=== PATIENT | female | born 1950 | race Caucasian/White ===

== ENCOUNTER 2017-12-16 10:17 | Inpatient (IN) | payer MEDICARE, BC ==
[2017-12-16 10:43] LABS: #Basophils 0.1 thou/uL (0.0-0.2); #Eosinphils 0.1 thou/uL (0.0-0.7); #Lymphocytes 1.4 thou/uL (1.20-3.40); #Monocytes 0.6 thou/uL (0.11-0.59); #Neutrophils 9.3 thou/uL (1.40-6.50); %Basophils 0.5 % (0.0-1.0); %Eosinophils 0.7 % (0.0-10.0); %Lymphocytes 12.4 % (21.0-51.0); %Monocytes 5.2 % (0.0-10.0); %Neutrophils 81.2 % (42.0-75.0); Hemoglobin 14.3 g/dL (12.0-16.0); Mean Corpuscular Hemoglobin 31.8 pg (27.0-31.0); Mean Corpuscular Volume 99.2 fL (78.0-98.0); Mean Platelet Volume 8.1 fL (7.4-10.4); Platelet Count 286 thou/uL (130-400); RBC Distribution Width 11.2 % (11.5-14.5); White Blood Cell (WBC) Count 11.5 thou/uL (4.8-10.8)
[2017-12-16] MEDS ORDERED: ISOVUE-370 76%-LOCM 1 ML ONE (10:48)
[2017-12-16 11:10] LABS: Troponin I Less than 0.010 ng/mL (< 0.028)
[2017-12-16] MEDS ORDERED: Lidocaine 1% w/Epinephrine 1:100K 20 ML VIAL ONE (11:11)
[2017-12-16] MEDS ORDERED: Lorazepam 2 MG/ML VIAL ONE (11:11)
[2017-12-16] MEDS ORDERED: Ondansetron PF 4 MG/2 ML Vial ONE (11:11)
[2017-12-16] MEDS ORDERED: Morphine 4 MG/ML VIAL ONE (11:15)
--- NOTE | 2017-12-16 11:35 | CT ---
CT CHEST AND ABDOMEN AND PELVIS WITH CONTRAST: Date: 12/16/17 Multiple axial tomograms obtained through the chest, abdomen, and pelvis following a trauma protocol. INDICATION: Fall from horse with injury to chest and abdomen. FINDINGS: CT CHEST: Moderate size right pneumothorax. There are acute fractures involving the anterolateral right fourth, fifth, sixth, and seventh ribs. There are numerous old fractures involving the right ribs posteriorly and laterally that appear heale d. Mediastinum unremarkable. Bilateral breast implants. IMPRESSION: 1. Moderate size right pneumothorax. 2. Acute fracture involving the anterolateral right fourth, fifth, sixth, and seventh ribs. 3. Numerous old right-sided rib fractures. CT ABDOMEN AND PELVIS: Liver, spleen, and pancreas unremarkable. Kidneys unremarkable. No evidence of solid organ injury. No free blood or fluid in the abdomen or pelvis. Bowel loops unremarkable. Aorta appears normal. The bony pelvis appears intact. There are degenerative changes at both hips without evidence of acute fracture. IMPRESSION: No acute intra-abdominal injury or pelvic fracture. CT THORACIC AND LUMBAR SPINE: Sagittal and coronal images of the thoracic and lumbar spine obtained. There are degenerative changes involving the thoracic and lumbar spine. Anterior osteophytes. Mild an terior wedging at several mid thoracic vertebra which appear chronic. There is mild buckling of the anterior cortex of L1 vertebra with mild anterior wedging at this site. This is suspicious for an acute compression with mild loss of anterior height. There is no retropuls ion. Posterior height is maintained. The other lumbar vertebra maintain height. Degenerative disc changes and facet hypertrophy seen throu ghout the lumbar spine. Review of the lumbar vertebra shows evidence of a probable acute fracture involving the transverse pr ocess on the right at L2. No other transverse process fracture confirmed. IMPRESSION: 1. Suspect acute mild anterior compression of the L1 vertebra. 2. Evidence of fracture of the right transverse process at L2. Findings relayed to Dr. Hardwick at the time of dictation. CODE CR. POS: [facility]
--- NOTE | 2017-12-16 12:17 | CT ---
CT BRAIN: Date: 12/06/17 PROVIDED CLINICAL HISTORY: Level II trauma, ejection from horse, head injury. FINDINGS: The ventricular system appears normal in size and morphology. There is no evidence for intracranial h emorrhage or mass effect. The extracranial soft tissues and osseous structures demonstrate no acute a bnormality. IMPRESSION: No evidence for intracranial hemorrhage or mass effect. POS: [facility]
--- NOTE | 2017-12-16 12:19 | CT ---
CT CERVICAL SPINE: Date: 12/16/17 Multiple axial tomograms obtained through the cervical spine with multiplanar reconstruction. INDICATION: Trauma. Injury to neck. FINDINGS: Cervical vertebra maintain normal height. There are moderate degenerative changes present in the mid cervical spine with loss of disc space at C4-5, C5-6, C6-7, and C7-T1. Slight anterolisthesis at C4-5 and C5-6. Posterior spondylosis encroaches into the spinal canal at several levels. No evidence of acute fracture. IMPRESSION: Degenerative changes of cervical spine. No acute fracture identified. POS: [facility]
--- NOTE | 2017-12-16 12:34 | RAD ---
PORTABLE CHEST: Date: 12/16/17 PROVIDED CLINICAL HISTORY: Chest pain. FINDINGS: Comparison is made with the study performed earlier same date. Interval placement of right-sided chest tube. Residual pneumothorax is not definitely identified. Add itional significant interval change with respect to the prior examination is not apparent. The supine nature of the examination limits sensitivity for detection of residual pneumothorax. IMPRESSION: As above. POS: [facility]
--- NOTE | 2017-12-16 12:35 | RAD ---
PORTABLE CHEST: Date: 12/16/17 INDICATION: Trauma with chest injury. FINDINGS: There is a moderate size right pneumothorax, which is better seen on chest CT. Multiple old right rib fractures which show healing on CT; however, CT does confirm acute fractures o f the anterolateral right fifth, sixth, and seventh ribs which are not apparent on this portable proj ection. See chest CT for further characterization. IMPRESSION: Right pneumothorax and right rib fractures. POS: [facility]
[2017-12-16 12:58] LABS: Albumin 4.1 g/dL (3.4-4.8)
[2017-12-16 13:00] LABS: Calcium 10.2 mg/dL (7.8-10.44); Chloride 100 mmol/L (98-107); Potassium 3.8 mmol/L (3.5-5.1); Sodium 136 mmol/L (136-145)
[2017-12-16 13:01] LABS: Globulin 3.1 g/dL (2.4-3.5); Glucose 115 mg/dL (80-115); Protein, Total 7.2 g/dL (6.0-8.3)
[2017-12-16 13:02] LABS: Carbon Dioxide 25 mmol/L (23-31)
[2017-12-16 13:03] LABS: Anion Gap 15 mmol/L (10-20); Bilirubin, Total 0.3 mg/dL (0.2-1.2)
[2017-12-16 13:04] LABS: Alkaline Phosphatase 66 U/L (40-150); Calc. Creatinine Clearance 0 mL/min (70-130); Estimated GFR-MDRD 53
[2017-12-16 13:05] LABS: BUN (Urea Nitrogen) 21 mg/dL (9.8-20.1)
[2017-12-16 13:06] LABS: AST (SGOT) 23 U/L (5-34)
[2017-12-16 13:07] LABS: ALT (SGPT) 18 U/L (8-55); Lipase 30 U/L (8-78)
[2017-12-16] MEDS ORDERED: Ondansetron PF 4 MG/2 ML Vial IVP PRN (13:07)
[2017-12-16] MEDS ORDERED: Dextrose 50% Abboject 50 ML SYRINGE SLOW IVP PRN (13:07)
[2017-12-16] MEDS ORDERED: hydrALAZINE 20 MG/ML VIAL SLOW IVP PRN (13:07)
[2017-12-16] MEDS ORDERED: Ondansetron ODT 4 MG TAB PO PRN (13:07)
[2017-12-16] MEDS ORDERED: Dextrose 5% in Water 1,000 ML IV PRN (13:07)
[2017-12-16] MEDS ORDERED: Rib Fracture Protocol PO SCH (13:15)
[2017-12-16] MEDS ORDERED: Cyclobenzaprine 10 MG TAB PO PRN (16:00)
[2017-12-16 16:01] VITALS: BMI 28.0
[2017-12-16] MEDS: Acetaminophen 500 MG TAB PO SCH ×2 (16:51→23:13)
[2017-12-16] MEDS: traMADol HCl 50 MG TAB PO SCH ×2 (16:52→23:13)
--- NOTE | 2017-12-16 16:59 | PRG ---
HISTORY: Leslie Vo is a 67-year-old female from [place], [place], was riding her horse, fell o ff of it, was evaluated elsewhere, transferred here. Patient had a chest x-ray, brain CAT scan, cerv ical spine CAT scan, chest, abdomen, and pelvis CAT scan. She was found to have a right pneumothorax . She had old right rib fractures as well as four new right rib fractures. Tube thoracostomy was pl aced in the ER. Ashlee HICKS evaluated her initially. I have discussed the case with Ashlee HICKS. I agree with her assessment and plan. The patient currently is comfortable. They are waiting to h ook her chest tube to suction. Followup chest x-ray after tube thoracostomy reveals full lung expans ion. Continue tube to suction today and check x-ray tomorrow. Possibly, we will place the Pleur-barak c to waterseal pending appearance.
--- NOTE | 2017-12-16 17:14 | HP ---
DATE OF ADMISSION: 12/16/2017 ATTENDING PHYSICIAN: Dr. Garcia. TRAUMA ACTIVATION: Level 2. HISTORY OF PRESENT ILLNESS: Leslie Vo is a 67-year-old female who presented to [facility] Room after being bucked off a horse. Per patient, she was riding a horse, it became spooked and b ucked her off. She fell landing on her right side and striking her head. She was seen and evaluated in the emergency room and found to have multiple right rib fractures with a moderate to large size r ight pneumothorax. ER personnel placed a right chest tube. There was reexpansion of the lung. [facility] was asked to admit. Upon my evaluation, the patient has a chief complaint of right-sided chest and back pain. PAST MEDICAL HISTORY: ALLERGIES: None. HOME MEDICATIONS: Include, multiple supplements, amlodipine 5 mg, Benicar 40 mg, Paxil 20 mg, Zocor 20 mg. PAST MEDICAL HISTORY: Significant for hypertension, hyperlipidemia, anxiety, and depression. PAST SURGICAL HISTORY: Bilateral knee replacement, hysterectomy, bilateral mastectomy and breast rec onstruction. SOCIAL HISTORY: She works part-time for a [employer], endorses a weekly alcohol use, but denies daily use and have a remote history of tobacco abuse. FAMILY HISTORY: Significant for a father with prostate cancer, brother with prostate cancer and moth er with thyroid disorder. REVIEW OF SYSTEMS: A 10-point review of systems was performed and negative except as indicated in th e HPI. PHYSICAL EXAMINATION: VITAL SIGNS: Temperature 98.2, pulse 64, blood pressure 114/79, respirations 18, O2 sat 97% on 2 lit ers nasal cannula. GENERAL: Well-developed female in no acute distress, resting in bed. HEAD: Normocephalic, atraumatic. EYES: Pupils are PERRLA. Extraocular movements are intact. NECK: Supple. Trachea is midline. There is no midline tenderness to palpation. CHEST/PULMONARY: There is tenderness to palpation in the right chest and back. Normal work of breat faisal, symmetric rise. LUNGS: Clear to auscultation bilaterally. CARDIOVASCULAR: Regular rate and rhythm, no obvious murmurs, rubs or gallops. GASTROINTESTINAL: Soft, nontender, nondistended, atraumatic. Pelvis is stable. MUSCULOSKELETAL: Back exam: Reported as being within normal limits. EXTREMITIES: Bilateral upper extremities, limited range of motion of the right shoulder, but otherwi se within normal limits. Bilateral lower extremities within normal limits. NEUROLOGIC: GCS of 15 and no focal deficit is noted. LABORATORY DATA: WBC 11.5, hemoglobin 14.3, hematocrit 44.6, platelet count 286. Sodium 136, potass ium 3.8, chloride 100, carbon dioxide 25, BUN 21, creatinine 1.04, glucose 115, AST and ALT within no rmal limits. Troponin less than 0.010. RADIOGRAPHIC FINDINGS: Chest x-ray with moderate sized right pneumothorax and multiple right rib fra ctures with evidence of old rib fractures. CT of the brain was negative for acute intracranial abnor mality. CT of the C-spine was negative for acute fracture dislocation. CT of the chest, abdomen, an d pelvis demonstrated moderate to large right-sided pneumothorax with right 4th, 5th, 6th, and 7th an terior lateral rib fractures and old right rib fractures. A right transverse process fracture at L2 and possible mild compression fracture of L1 vertebrae. Chest x-ray post-chest tube placement demons trated reinflation of the right lung and placement of a right chest tube. ASSESSMENT: 1. Status post livestock trauma. 2. Right 4th, 5th, 6th, and 7th rib fractures. 3. Moderate right pneumothorax, status post chest tube placement. 4. Possible L1 compression fracture, right transverse process fracture of L2. 5. Acute traumatic pain. 6. History of hypertension. 7. History of anxiety and depression. PLAN: Admit to Trauma Services. We will discuss lumbar spine findings with Neurosurgery. Chest tube to velazquez ction. A repeat chest x-ray in the morning. Pain management via p.o. analgesics with rib fracture p rotocol. Discussed the importance of incentive spirometry and mobility with the patient. DVT and ga stritis prophylaxis when appropriate. Plan of admission was discussed with the patient at bedside an d all questions were answered at the time of this dictation. Trauma attending has been notified of a dmission.
[2017-12-16] MEDS ORDERED: Prevnar 13-Val Conj/PF 0.5 ML SYRINGE IM ONE (21:00)
[2017-12-16] MEDS: Gabapentin 100 MG CAP PO SCH (21:01)
[2017-12-16] MEDS: Ibuprofen 600 MG TAB PO SCH (21:01)
[2017-12-16] MEDS: Famotidine 20 MG TAB PO SCH (21:01)
[2017-12-17] MEDS: Acetaminophen 500 MG TAB PO SCH ×3 (05:27→18:22)
[2017-12-17] MEDS: Ibuprofen 600 MG TAB PO SCH (05:27)
[2017-12-17] MEDS: traMADol HCl 50 MG TAB PO SCH ×3 (05:27→18:23)
[2017-12-17 06:21] LABS: #Lymphocytes 1.9 thou/uL (1.20-3.40); #Monocytes 0.5 thou/uL (0.11-0.59); #Neutrophils 5.2 thou/uL (1.40-6.50); %Basophils 0.3 % (0.0-1.0); %Eosinophils 0.6 % (0.0-10.0); %Lymphocytes 24.8 % (21.0-51.0); %Monocytes 6.7 % (0.0-10.0); %Neutrophils 67.6 % (42.0-75.0); Hemoglobin 11.6 g/dL (12.0-16.0); Mean Corpuscular HGB CONC 32.8 g/dL (32.0-36.0); Mean Corpuscular Hemoglobin 32.6 pg (27.0-31.0); Mean Corpuscular Volume 99.3 fL (78.0-98.0); Platelet Count 204 thou/uL (130-400); RBC Distribution Width 11.4 % (11.5-14.5); Red Blood Cell (RBC) Count 3.55 mill/uL (4.20-5.40); White Blood Cell (WBC) Count 7.7 thou/uL (4.8-10.8)
[2017-12-17 06:28] LABS: Anion Gap 10 mmol/L (10-20); BUN (Urea Nitrogen) 25 mg/dL (9.8-20.1); Calc. Creatinine Clearance 65 mL/min (70-130); Calcium 9.1 mg/dL (7.8-10.44); Carbon Dioxide 29 mmol/L (23-31); Chloride 98 mmol/L (98-107); Estimated GFR-MDRD 48; Glucose 100 mg/dL (80-115); Phosphorus 4.1 mg/dL (2.3-4.7); Potassium 3.3 mmol/L (3.5-5.1); Sodium 134 mmol/L (136-145)
--- NOTE | 2017-12-17 07:59 | RAD ---
PORTABLE CHEST: Date: 12/17/17 HISTORY: Rib fractures with pneumothorax. COMPARISON: 12/16/17. FINDINGS/IMPRESSION: Right-sided chest tube again noted. Evidence of small right apical pneumothorax. Mild subcutaneous em physema. Lung neville are otherwise clear and unchanged. POS: [facility]
[2017-12-17] MEDS: Gabapentin 100 MG CAP PO SCH ×3 (08:44→20:52)
[2017-12-17] MEDS: Enoxaparin Sodium 40 MG/0.4 ML SYRINGE SC SCH (08:44)
[2017-12-17] MEDS: Famotidine 20 MG TAB PO SCH ×2 (09:23→20:52)
--- NOTE | 2017-12-17 11:03 | CON ---
DATE OF SERVICE: 12/17/2017 HISTORY OF PRESENT ILLNESS: Ms. Vo was admitted yesterday by the Trauma Service after being horse suffering several injuries including pneumothorax, several rib fractures and what looks to be a possible very slight L1 compression fracture, but she does have an acute right L2 transverse proces s fracture. At bedside today, she has right-sided chest wall pain expect from the rib fracture s. She also has very minimal lower back pain. She has full function of the lower extremities. Michael es any radiating pains. Neurosurgery's plan is definitively nonsurgical. We would recommend LSO Nesha irback or TLSO in upper right for comfort sake; however, this may be intolerable secondary to rib fra ctures. She will need to refrain from heavy activity and heavy lifting. We would recommend 2 week f tiesha outpatient; however, [place], so it may need to be that she follows about .
--- NOTE | 2017-12-17 15:26 | RAD ---
PORTABLE CHEST: Date: 12/17/17 HISTORY: Pneumothorax. Comparison with film from earlier today. FINDINGS: Right chest tube is again noted. Right-sided rib fractures. No definite pneumothorax. There is subcut aneous emphysema over the right chest. Lungs remain clear of infiltrate. IMPRESSION: No interval change apparent. POS: [facility]
[2017-12-17] MEDS ORDERED: Potassium Chloride 20 MEQ TAB PO SCH (18:30)
--- NOTE | 2017-12-17 20:55 | PRG ---
DATE OF SERVICE: 12/17/2017 SUBJECTIVE: This is a 67-year-old female status post livestock injury, being bucked off by a horse r esulting in multiple right-sided rib fractures, a right pneumothorax, and a mild L1 compression fract ure. The patient has been seen and evaluated by Neurosurgery who recommends conservative management with or without bracing depending on whether or not the patient is symptomatic. There were no acute overnight events. Upon my evaluation, the patient states that her pain has been well controlled and vocalized no complaint. OBJECTIVE: VITAL SIGNS: Temperature 97.9, pulse 74, respirations 16, O2 sat 94%-95% on room air, blood pressure 118/77. GENERAL: Well-developed female in no acute distress, resting in bed. PULMONARY: Normal work of breathing. Symmetric rise. Chest tube is in place, I's greater than 2000 mL. CARDIOVASCULAR: Regular rate and rhythm. GASTROINTESTINAL: Soft, nontender, nondistended. MUSCULOSKELETAL: Moves all extremities x4. NEUROLOGIC: No focal deficit noted. LABORATORY FINDINGS: WBC 7.7, hemoglobin 11.6, hematocrit 35.3, platelet count 204. Sodium 134, pot assium 3.3, chloride 98, carbon dioxide 29, BUN 25, creatinine 1.13, glucose 100. RADIOGRAPHIC FINDINGS: Chest x-ray with small right apical pneumothorax. PLAN: I had and redressed the patient's chest tube. Repeat chest x-ray this afternoon. Cyn nue wall suction for now. If pneumothorax has resolved , we will place on water seal at that ti me. Repeat chest x-ray in the morning. Replete abnormal electrolytes. ASSESSMENT: 1. Status post fall/bucked from horse. 2. Multiple right rib fractures. 3. Right traumatic pneumothorax. 4. Acute traumatic pain. 5. L1 compression fracture. 6. History of hypertension, anxiety, and depression. Encourage incentive spirometry, pulmonary toileting, and mobility. Plan of care was discussed with t dylon patient at bedside and all questions were answered at the time of this dictation. The patient has been discussed with trauma attending.
[2017-12-18] MEDS: traMADol HCl 50 MG TAB PO SCH ×4 (00:41→18:31)
[2017-12-18] MEDS: Acetaminophen 500 MG TAB PO SCH ×4 (00:43→18:31)
[2017-12-18 06:27] LABS: #Eosinphils 0.1 thou/uL (0.0-0.7); #Lymphocytes 1.3 thou/uL (1.20-3.40); #Monocytes 0.4 thou/uL (0.11-0.59); #Neutrophils 3.8 thou/uL (1.40-6.50); %Basophils 0.6 % (0.0-1.0); %Eosinophils 1.6 % (0.0-10.0); %Monocytes 7.5 % (0.0-10.0); %Neutrophils 67.3 % (42.0-75.0); Hemoglobin 11.6 g/dL (12.0-16.0); Mean Corpuscular HGB CONC 33.6 g/dL (32.0-36.0); Mean Corpuscular Hemoglobin 33.4 pg (27.0-31.0); Mean Corpuscular Volume 99.3 fL (78.0-98.0); Mean Platelet Volume 8.1 fL (7.4-10.4); Platelet Count 197 thou/uL (130-400); RBC Distribution Width 11.3 % (11.5-14.5); Red Blood Cell (RBC) Count 3.49 mill/uL (4.20-5.40); White Blood Cell (WBC) Count 5.7 thou/uL (4.8-10.8)
[2017-12-18 06:28] LABS: Anion Gap 11 mmol/L (10-20); BUN (Urea Nitrogen) 16 mg/dL (9.8-20.1); Calc. Creatinine Clearance 84 mL/min (70-130); Calcium 9.4 mg/dL (7.8-10.44); Carbon Dioxide 28 mmol/L (23-31); Chloride 104 mmol/L (98-107); Estimated GFR-MDRD 65; Glucose 95 mg/dL (80-115); Magnesium 2.1 mg/dL (1.6-2.6); Phosphorus 3.4 mg/dL (2.3-4.7); Sodium 139 mmol/L (136-145)
[2017-12-18] MEDS: Famotidine 20 MG TAB PO SCH (08:46)
[2017-12-18] MEDS: Gabapentin 100 MG CAP PO SCH ×3 (08:46→20:42)
[2017-12-18] MEDS: Polyethylene Glycol 3350 17 GM Packet PO SCH (08:47)
[2017-12-18] MEDS: Enoxaparin Sodium 40 MG/0.4 ML SYRINGE SC SCH (08:47)
--- NOTE | 2017-12-18 08:49 | RAD ---
SINGLE VIEW OF THE CHEST: Comparison: 12-17-17 History: Pneumothorax. FINDINGS: Single view of the chest shows a normal sized cardiomediastinal silhouette. A right sided chest tube is unchanged in position. No pneumothorax is seen. Air is seen in the right chest wall. There is no e vidence of consolidation, mass, or pleural effusion. IMPRESSION: Stable exam. POS: [facility]
[2017-12-18] MEDS: Senokot 8.6 MG TAB PO SCH ×2 (10:00→20:42)
--- NOTE | 2017-12-18 14:48 | PRG-2 ---
DATE OF SERVICE: 12/18/2017 SUBJECTIVE: Mrs. Vo is a 67-year-old female, admitted to the Trauma Service on 12/16/2017. She i s hospital day #2, status post a fall from a horse with right ribs 4 through 7 fractures. The patien t sustained a pneumothorax. A tube thoracostomy was placed by the emergency department with good res olution of the pneumothorax. The patient has been on water seal overnight. Repeat chest x-ray this morning demonstrates no residual pneumothorax. The patient is ambulatory, tolerating a diet well. S tates that her pain is well controlled and she has no shortness of air. She is on room air and doing well. OBJECTIVE DATA: VITAL SIGNS: Blood pressure is 138/83, temperature is 98.3, heart rate is 61, 95% on room air, and b reathing 18 times per minute. GENERAL: This is a 67-year-old female sitting up in bed in no acute distress. HEENT: Normocephalic, atraumatic. NECK: Trachea is midline. No JVD is appreciated. RESPIRATORY: Equal rise and fall. Bilateral breath sounds are clear to auscultation upper and lower bilaterally. She does have a right chest tube noted near the posterior axillary line that has no ai r leak to her water seal. ABDOMEN: Soft and nontender. EXTREMITIES: Moves all extremities well. PSYCHIATRIC: Normal mood and affect. NEUROLOGIC: Alert and oriented to person, place, time, and event. DIAGNOSTIC DATA: From today, white blood cell count of 5.7, platelets are 197, hemoglobin and hemato crit 11.6 and 34.6, respectively. Sodium is 139, potassium is 4.0, chloride is 104, creatinine is 0. 87, and BUN of 16. Mag is 2.1, phos is 3.4. Chest tube in place with no residual pneumothorax. ASSESSMENT: 1. Right rib fractures 4 through 7. 2. Right traumatic pneumothorax resolved with chest tube placement. 3. Acute traumatic pain. PLAN: 1. We removed the chest tube and placed Vaseline gauze and a bulky dressing over the insertion site, patient tolerated it well. 2. Continue pain medicine as needed. 3. Repeat chest x-ray in the morning. 4. Continue with advanced diet. 5. Continue ambulation. DISPOSITION: Will likely be discharged back home tomorrow if there is no reaccumulation of pneumotho rax. The patient was seen and evaluated with Dr. Sanchez. Plan can be updated as needed.
[2017-12-19] MEDS: traMADol HCl 50 MG TAB PO SCH ×2 (00:09→05:10)
[2017-12-19] MEDS: Acetaminophen 500 MG TAB PO SCH ×2 (00:09→05:11)
[2017-12-19 08:26] VITALS: BP 149/85; TEMP 98.4
[2017-12-19] MEDS: Enoxaparin Sodium 40 MG/0.4 ML SYRINGE SC SCH (08:48)
[2017-12-19] MEDS: Polyethylene Glycol 3350 17 GM Packet PO SCH (08:48)
[2017-12-19] MEDS: Senokot 8.6 MG TAB PO SCH (08:48)
[2017-12-19] MEDS: Gabapentin 100 MG CAP PO SCH (08:48)
--- NOTE | 2017-12-19 09:06 | RAD ---
SINGLE VIEW OF THE CHEST: Comparison: 12-18-17 History: Chest tube removal for pneumothorax. FINDINGS: Single view of the chest shows a normal sized cardiomediastinal silhouette. The right sided chest tub e has been removed. No pneumothorax is seen. There is no evidence of consolidation, mass, or pleural effusion. There are multiple right rib fractures. Air is seen in the right chest wall. IMPRESSION: Status post chest tube removal without evidence of pneumothorax. POS: [facility]
--- NOTE | 2017-12-19 16:02 | DIS-2 ---
DATE OF ADMISSION: 12/16/2017 DATE OF DISCHARGE: 12/19/2017 RESIDENT: Jesica Fuller MD SUPERVISING ATTENDING: Fuad Sanchez DO CONSULTATIONS: Case Management, Neurosurgery, Occupational Therapy, walking program. PROCEDURES: None. PRIMARY DIAGNOSES: Right rib fractures 4 through 7; right traumatic pneumothorax, resolved with chest tube placement. SECONDARY DIAGNOSES: Acute traumatic pain, hypertension, hyperlipidemia, anxiety, and depression. DISCHARGE MEDICATIONS: 1. Acetaminophen (tylenol) 1000mg oral every 6 hours 2. Tramadol HCL (Ultram) 50mg oral every 6 hours 3. Ibuprofen (motrin) 400 mg oral twice daily 4. Calcium Carbonate 500 mg oral twice daily 5. Raloxifene (evista) 60mg oral bedtime 6. Paroxetine (Paxil) 20mg oral bedtime 7. Olmesartan Medoxomil (benicar) 40mg oral bedtime 8. FIsh oil 1000 mg oral bedtime 9. Simvastatin (zocor) 20mg oral bedtime 10. Vit E 400 unit oral bedtime 11. Pyridoxine (Vit B6) 200 mg oral daily 12. Magnesium oxide 400 mg oral bedtime 13. Cyanocobalamin (Vit B12) 250 mcg oral daily DISCONTINUED MEDICATIONS: None. HISTORY OF PRESENT ILLNESS/HOSPITAL COURSE: This is a 67-year-old female who presented to the ED after being bucked off by a horse. Patient is from [place], [place] where she presented to the ED there and was transferred here. The patient fell on her right side and was found to have multiple right rib fractures 4 through 7 in the large right pneumothorax. She also has a right transverse process fracture at L2 with mild compression fracture of the L1 vertebrae. A right chest tube was placed by ER personnel with reexpansion of the lung. No evidence of intracranial abnormalities noted on CT. Neurosurgery was consulted to evaluate compression fracture. They recommended nonsurgical management. They did recommend an LSO to her back or TLSO in upper right or comfort sake and close followup. Chest tube was removed on 12/18/2017 with a repeat chest x-ray on 12/19/2017 showing stable exam with no pneumothorax. Discussed with the patient the need for incentive spirometry and ambulation. The patient will be following up with her PCP in [place], and repeat chest x- ray at that time. The patient was given return precautions. The patient was seen and evaluated by Dr. Sanchez at the bedside on the day of discharge. The plan was discussed with the patient and her who was at the bedside with Dr. Sanchez. All questions were answered. DISPOSITION: Stable. DISCHARGE INSTRUCTIONS: 1. Location: Home. 2. Diet: Regular. 3. Activity: No heavy lifting. 4. Follow up with PCP within 2 weeks. [facility]
== END 2017-12-19 10:45 | disposition home or self-care (01) | DRG 200 ==
LOC: ERS 10:17 → SURG A 15:22
PROVIDERS: ADMIT Specialist; ATTEND Specialist
DX: S27.0XXA Traumatic pneumothorax, initial encounter (principal); S22.41XA Multiple fractures of ribs, right side, initial encounter for closed fracture; S32.020A Wedge compression fracture of second lumbar vertebra, initial encounter for closed fracture; V80.010A Animal-rider injured by fall from or being thrown from horse in noncollision accident, initial encounter; Y93.52 Activity, horseback riding; Z79.899 Other long term (current) drug therapy; I10 Essential (primary) hypertension; E78.5 Hyperlipidemia, unspecified; F41.9 Anxiety disorder, unspecified; F32.9 Major depressive disorder, single episode, unspecified; Z96.653 Presence of artificial knee joint, bilateral; Z90.13 Acquired absence of bilateral breasts and nipples
CPT/HCPCS: 32551; 36415; 70450; 71045; 71260; 72125; 74177; 80048; 80053; 83690; 83735; 84100; 84484; 85025; 90471; 90670; 94640; 96374; 96375; 99292; G0009; J1650; J2001; J2060; J2270; J2405; J7620